=== PATIENT | female | born 1955 | race Asian ===

== ENCOUNTER → 2017-02-03 | Outpatient (CLI) | payer MEDICARE, OTHER ==
[~2017-02-03] MED LIST: AMLO5TAB4 PO; ASPI-556 PO; ATOR40TA28 PO; EXEN5PEN2 SQ; FERR-89 PO; HYDR-4173 PO; LABE200T PO; SERT50TA12 PO; SIMV-260 PO
== END | disposition home or self-care (01) ==
LOC: RADPV 10:41
PROVIDERS: ATTEND Internal Medicine Nephrology
DX: N18.4 Chronic kidney disease, stage 4 (severe) (principal); N27.0 Small kidney, unilateral
CPT/HCPCS: 76770

== ENCOUNTER → 2018-02-05 | Outpatient (CLI) | payer MEDICARE, OTHER | END | disposition home or self-care (01) | LOC: RADPV 09:59 | PROVIDERS: ATTEND Internal Medicine Nephrology | DX: N26.1 Atrophy of kidney (terminal) (principal); N18.4 Chronic kidney disease, stage 4 (severe) | CPT/HCPCS: 76770 ==

== ENCOUNTER 2019-12-12 23:23 | Inpatient (IN) | payer MEDICARE, OTHER ==
[~2019-12-12] VITALS: Ht 162.6 cm; Wt 65.2 kg
[~2019-12-12 23:23] MED LIST changes: -LABE200T PO; +LABE200T5 PO
[2019-12-13] MEDS ORDERED: VANCOMYCIN HCL 1 GM/D5% WATER 200 ML IV ONE
[2019-12-13] MEDS ORDERED: PIPERACILLIN/TAZO 3.375 GM/D5W 50 ML IV ONE
[2019-12-13] MEDS ORDERED: PIPERACILLIN SODIUM/TAZOBACTAM 4.5 GM in DEXTROSE 5%-WATER 100 ML IV ONE ×2
[2019-12-13 00:08] LABS: BASOPHILS % (AUTO) 0.2 % (0.0-2.0); EOSINOPHILS % (AUTO) 0 % (1.0-6.0); HEMATOCRIT 28.4 % (36-46); HEMOGLOBIN 9.1 g/dL (12.0-16.0); LYMPHOCYTES # (AUTO) 0.3 K/uL (1.0-4.8); LYMPHOCYTES % (AUTO) 2.7 % (22.0-44.0); MEAN CORPUSCULAR HGB CONC 32.2 G/dL (31.0-37.0); MEAN CORPUSCULAR VOLUME 87 fL (80-100); MONOCYTES # (AUTO) 0.6 K/uL (0.1-1.0); MONOCYTES % (AUTO) 5.8 % (2.0-9.0); NEUTROPHILS # (AUTO) 9.5 K/uL (1.8-7.7); PLATELET COUNT (AUTO) 175 K/uL (150-450); RED BLOOD CELL COUNT(AUTO) 3.27 MIL/uL (4.00-5.20); RED CELL DISTRIBUTION WIDTH 18.7 % (11.5-14.5)
[2019-12-13 00:10] LABS: NEUTROPHILS % (AUTO) 91.3 % (40.0-70.0)
[2019-12-13 00:14] LABS: CREATININE 5.54 mg/dL (0.60-1.30); POTASSIUM 4.3 mmol/L (3.5-5.1)
[2019-12-13] MEDS ORDERED: SODIUM CHLORIDE 0.9% 1,000 ML IV ONE ×2 (00:15→01:45)
[2019-12-13 00:17] LABS: INR 1.2 (0.9-1.1)
[2019-12-13 00:20] LABS: ALBUMIN 2.1 g/dL (3.4-5.0); BILIRUBIN,TOTAL 0.8 mg/dL (0.1-1.0); TOTAL PROTEIN, SERUM 6.9 g/dL (6.4-8.2)
[2019-12-13 00:21] LABS: LACTIC ACID 1.7 mmol/L (0.4-2.0)
[2019-12-13 00:36] LABS: INFLUENZA TYPE A NEGATIVE FOR TYPE A (NEGATIVE); INFLUENZA TYPE B NEGATIVE FOR TYPE B (NEGATIVE)
[2019-12-13] MEDS ORDERED: INSU200I4 SQ (00:36)
[2019-12-13] MEDS ORDERED: SEVE800T17 PO (00:36)
[2019-12-13] MEDS ORDERED: BRIM15OS OU (00:36)
[2019-12-13] MEDS ORDERED: ALLO100T PO (00:36)
[2019-12-13] MEDS ORDERED: NUT.237L66 PO (00:36)
[2019-12-13] MEDS ORDERED: APIX2.5T PO (00:36)
[2019-12-13] MEDS ORDERED: OXYM30SP27 NASAL (00:36)
[2019-12-13] MEDS ORDERED: PREG50 PO (00:36)
[2019-12-13] MEDS ORDERED: MECL-160 PO (00:36)
[2019-12-13] MEDS ORDERED: OLME20TA10 PO (00:36)
[2019-12-13 00:54] LABS: GLUCOSE,POINT OF CARE 247 MG/DL (70-110)
[2019-12-13 01:09] LABS: APPEARANCE,URINE CLOUDY (CLEAR); BILIRUBIN,URINE NEGATIVE (NEGATIVE); GLUCOSE, URINE (UA) 250 mg/dL (NEGATIVE); KETONES,URINE NEGATIVE (NEGATIVE); LEUKOCYTE ESTERASE ,URINE MODERATE (NEGATIVE); NITRATE,URINE NEGATIVE (NEGATIVE); OCCULT BLOOD,URINE SMALL (NEGATIVE); PH,URINE 6.5 (5.0-8.0); PROTEIN,URINE SEE CONFIRM (NEGATIVE); UROBILINOGEN,URINE 0.2 mg/dL (<=1.0)
[2019-12-13 01:17] LABS: BACTERIA,URINE Few /HPF (None Seen); SULFOSALICYLIC ACID,URINE 4+ (Negative); WBC,URINE >100 /HPF (0-5); YEAST,URINE Rare /HPF (None Seen)
[2019-12-13 01:18] LABS: SQUAMOUS EPITHELIAL CELL,UR Rare /LPF (None Seen)
[2019-12-13] MEDS ORDERED: NOREPINEPHRINE 4 MG/D5%-WATER 250 ML IV ONE (02:50)
[2019-12-13] MEDS ORDERED: ACETAMINOPHEN 325 MG TABLET PO PRN (03:00)
[2019-12-13] MEDS ORDERED: ONDANSETRON HCL 4 MG/2 ML VIAL IVP PRN (03:00)
[2019-12-13] MEDS ORDERED: 0.9% SODIUM CHLORIDE 10 ML SYRINGE IVP PRN ×2 (03:00)
[2019-12-13] MEDS ORDERED: CIPROFLOXACIN 400 MG/D5% WATER 200 ML IV ONE (03:15)
[2019-12-13] MEDS ORDERED: NOREPINEPHRINE 4 MG/D5%-WATER 250 ML IV PRN (03:15)
[2019-12-13] MEDS ORDERED: ACETAMINOPHEN 1000 MG/ISO-OSM 100 ML IV ONE ×2 (06:30)
[2019-12-13 09:04] LABS: GLUCOSE,POINT OF CARE 271 MG/DL (70-110)
[2019-12-13] MEDS ORDERED: DIGOXIN 250 MCG/ML 2 ML AMP IVP ONE ×2 (10:15)
[2019-12-13] MEDS ORDERED: AMIODARONE HCL 150 MG in DEXTROSE 5%-WATER 97 ML IV ONE (10:30)
[2019-12-13] MEDS ORDERED: AMIODARONE HCL 360 MG in DEXTROSE 5%-WATER 242.8 ML IV ONE (10:45)
[2019-12-13 13:50] LABS: GLUCOSE,POINT OF CARE 379 MG/DL (70-110)
[2019-12-13 16:00] VITALS: BP 138/57
[2019-12-13] MEDS ORDERED: AMIODARONE HCL 540 MG in DEXTROSE 5%-WATER 239.2 ML IV ONE (16:45)
[2019-12-13] MEDS ORDERED: DEXTROSE 50%-WATER 25 GM/50 ML SYRINGE IVP PRN (18:30)
[2019-12-13] MEDS ORDERED: INSULIN LISPRO 100 UNITS/ML SQ PRN (18:30)
[2019-12-13 20:00] VITALS: BP 114/49
[2019-12-13 21:59] LABS: GLUCOSE,POINT OF CARE 239 MG/DL (70-110)
[2019-12-14] VITALS (7 sets, daily range): BP systolic 96–156; BP diastolic 41–80
[2019-12-14] MEDS ORDERED: DEXTROSE 50%-WATER 25 GM/50 ML SYRINGE IVP PRN (01:00)
[2019-12-14 06:30] LABS: GLUCOSE,POINT OF CARE 143 MG/DL (70-110)
[2019-12-14 06:40] LABS: BASOPHILS % (AUTO) 0.2 % (0.0-2.0); EOSINOPHILS % (AUTO) 2.5 % (1.0-6.0); HEMATOCRIT 22.7 % (36-46); HEMOGLOBIN 7.5 g/dL (12.0-16.0); LYMPHOCYTES # (AUTO) 0.6 K/uL (1.0-4.8); MEAN CORPUSCULAR HEMOGLOBIN 28.6 pg (26.0-34.0); MEAN CORPUSCULAR HGB CONC 33.2 G/dL (31.0-37.0); MEAN CORPUSCULAR VOLUME 86 fL (80-100); MONOCYTES # (AUTO) 0.6 K/uL (0.1-1.0); MONOCYTES % (AUTO) 6.3 % (2.0-9.0); PLATELET COUNT (AUTO) 139 K/uL (150-450); RED BLOOD CELL COUNT(AUTO) 2.63 MIL/uL (4.00-5.20); RED CELL DISTRIBUTION WIDTH 18.7 % (11.5-14.5)
[2019-12-14 07:10] LABS: % IRON SATURATION 21.1 % (22-44)
[2019-12-14 07:23] LABS: ALBUMIN 1.8 g/dL (3.4-5.0); BILIRUBIN,TOTAL 0.5 mg/dL (0.1-1.0); CALCIUM, TOTAL 8.8 mg/dL (8.8-10.5); CREATININE 6.13 mg/dL (0.60-1.30); MAGNESIUM 1.9 mg/dL (1.80-2.40); POTASSIUM 4.1 mmol/L (3.5-5.1); TOTAL PROTEIN, SERUM 6.2 g/dL (6.4-8.2)
[2019-12-14] MEDS: EPOETIN ALFA 10,000 UNITS/ML VIAL SQ SCH (08:21)
[2019-12-14] MEDS: SEVELAMER CARBONATE 800 MG TABLET PO SCH ×3 (08:21→17:31)
[2019-12-14] MEDS: PREGABALIN 50 MG CAPSULE PO SCH (08:21)
[2019-12-14] MEDS: ATORVASTATIN CALCIUM 40 MG TABLET PO SCH (08:21)
[2019-12-14] MEDS: ALLOPURINOL 100 MG TABLET PO SCH (08:22)
[2019-12-14] MEDS: OXYMETAZOLINE HCL 0.05% 15 ML NASAL SPRAY NASAL SCH ×2 (08:22→21:33)
[2019-12-14] MEDS: BRIMONIDINE TARTRATE 0.1% 5 ML OPHTHALMIC SOLUTION OU SCH ×3 (08:22→21:32)
[2019-12-14] MEDS ORDERED: OLMESARTAN MEDOXOMIL 20 MG TABLET PO SCH (09:00)
[2019-12-14] MEDS ORDERED: AMIODARONE HCL 750 MG in DEXTROSE 5%-WATER 485 ML IV SCH (10:45)
[2019-12-14] MEDS ORDERED: HEPARIN SODIUM,PORCINE 1,000 UNITS/ML VIAL IVP ONE (12:00)
[2019-12-14 14:51] LABS: GLUCOSE,POINT OF CARE 135 MG/DL (70-110)
[2019-12-14] MEDS ORDERED: VANCOMYCIN HCL 1 GM/D5% WATER 200 ML IV PRN (15:30)
[2019-12-14] MEDS ORDERED: CefTAZidime PENTAHYDRATE 1 GM in DEXTROSE 5%-WATER 50 ML IV SCH (16:00)
[2019-12-14] MEDS ORDERED: VANCOMYCIN HCL 1 GM/D5% WATER 200 ML IV ONE (17:00)
[2019-12-14] MEDS: SOD FERRIC GLUC COMPLX/SUCROSE 125 MG in SODIUM CHLORIDE 0.9% 100 ML IV SCH (18:27)
[2019-12-14] MEDS: AMIODARONE HCL 200 MG TABLET PO SCH (22:02)
[2019-12-14] MEDS: ACETAMINOPHEN 325 MG TABLET PO PRN (22:10)
[2019-12-14] MEDS: PIPERACILLIN SODIUM/TAZOBACTAM 2.25 GM in DEXTROSE 5%-WATER 50 ML IV SCH (22:21)
[2019-12-15] VITALS (8 sets, daily range): BP systolic 109–154; BP diastolic 52–84
[2019-12-15] MEDS ORDERED: SODIUM CHLORIDE 0.9% 250 ML IV ONE ×2 (02:29→23:37)
[2019-12-15] MEDS: ACETAMINOPHEN 325 MG TABLET PO PRN ×2 (05:02→11:28)
[2019-12-15 05:07] LABS: BASOPHILS % (AUTO) 0.4 % (0.0-2.0); EOSINOPHILS % (AUTO) 3.1 % (1.0-6.0); HEMATOCRIT 22.1 % (36-46); HEMOGLOBIN 7.3 g/dL (12.0-16.0); LYMPHOCYTES # (AUTO) 0.6 K/uL (1.0-4.8); LYMPHOCYTES % (AUTO) 10.7 % (22.0-44.0); MEAN CORPUSCULAR HEMOGLOBIN 28.2 pg (26.0-34.0); MEAN CORPUSCULAR HGB CONC 33.2 G/dL (31.0-37.0); MEAN CORPUSCULAR VOLUME 85 fL (80-100); MONOCYTES # (AUTO) 0.5 K/uL (0.1-1.0); MONOCYTES % (AUTO) 8.1 % (2.0-9.0); NEUTROPHILS # (AUTO) 4.3 K/uL (1.8-7.7); NEUTROPHILS % (AUTO) 77.7 % (40.0-70.0); PLATELET COUNT (AUTO) 133 K/uL (150-450); RED CELL DISTRIBUTION WIDTH 18.8 % (11.5-14.5)
[2019-12-15 05:25] LABS: ALBUMIN 1.9 g/dL (3.4-5.0); BILIRUBIN,TOTAL 0.7 mg/dL (0.1-1.0); CALCIUM, TOTAL 8.3 mg/dL (8.8-10.5); CREATININE 2.86 mg/dL (0.60-1.30); MAGNESIUM 1.5 mg/dL (1.80-2.40); PHOSPHORUS 2.3 mg/dL (2.5-4.9); POTASSIUM 3.6 mmol/L (3.5-5.1); TOTAL PROTEIN, SERUM 6.2 g/dL (6.4-8.2)
[2019-12-15] MEDS: PIPERACILLIN SODIUM/TAZOBACTAM 2.25 GM in DEXTROSE 5%-WATER 50 ML IV SCH ×3 (07:04→22:33)
[2019-12-15 07:25] LABS: GLUCOSE,POINT OF CARE 95 MG/DL (70-110)
[2019-12-15 07:25] LABS: GLUCOSE,POINT OF CARE 125 MG/DL (70-110)
[2019-12-15 07:36] LABS: GLUCOSE,POINT OF CARE 110 MG/DL (70-110)
[2019-12-15] MEDS: VITAMIN B COMP/VIT C/FOLIC ACID CAPSULE PO SCH (08:03)
[2019-12-15] MEDS: ATORVASTATIN CALCIUM 40 MG TABLET PO SCH (08:03)
[2019-12-15] MEDS: PREGABALIN 50 MG CAPSULE PO SCH (08:03)
[2019-12-15] MEDS: SEVELAMER CARBONATE 800 MG TABLET PO SCH ×2 (08:03→11:27)
[2019-12-15] MEDS: AMIODARONE HCL 200 MG TABLET PO SCH ×2 (08:03→22:31)
[2019-12-15] MEDS: ALLOPURINOL 100 MG TABLET PO SCH (08:03)
[2019-12-15] MEDS: OXYMETAZOLINE HCL 0.05% 15 ML NASAL SPRAY NASAL SCH ×2 (08:05→22:31)
[2019-12-15] MEDS: BRIMONIDINE TARTRATE 0.1% 5 ML OPHTHALMIC SOLUTION OU SCH ×3 (08:06→22:31)
[2019-12-15] MEDS ORDERED: MAGNESIUM OXIDE 400 MG TABLET PO ONE (08:45)
[2019-12-15] MEDS: INSULIN LISPRO 100 UNITS/ML SQ PRN ×2 (11:29→22:43)
[2019-12-15 11:36] LABS: GLUCOSE,POINT OF CARE 132 MG/DL (70-110)
[2019-12-15] MEDS: SOD FERRIC GLUC COMPLX/SUCROSE 125 MG in SODIUM CHLORIDE 0.9% 100 ML IV SCH (18:00)
[2019-12-15 19:08] LABS: GLUCOMETER DEV NAME(LOC) 5S.2A; GLUCOSE,POINT OF CARE 127 MG/DL (70-110)
[2019-12-16] VITALS (15 sets, daily range): BP systolic 95–165; BP diastolic 29–72
[2019-12-16] MEDS ORDERED: LATA2.5D2 OU (01:44)
[2019-12-16 03:11] LABS: GLUCOMETER DEV NAME(LOC) 5N.1; GLUCOSE,POINT OF CARE 143 MG/DL (70-110)
[2019-12-16] MEDS ORDERED: SODIUM CHLORIDE 0.9% 1,000 ML ONE ×2 (04:13)
[2019-12-16 07:24] LABS: BASOPHILS % (AUTO) 0.4 % (0.0-2.0); EOSINOPHILS % (AUTO) 1.1 % (1.0-6.0); HEMATOCRIT 22.2 % (36-46); HEMOGLOBIN 7.2 g/dL (12.0-16.0); LYMPHOCYTES # (AUTO) 0.8 K/uL (1.0-4.8); LYMPHOCYTES % (AUTO) 12.3 % (22.0-44.0); MEAN CORPUSCULAR HEMOGLOBIN 27.5 pg (26.0-34.0); MEAN CORPUSCULAR HGB CONC 32.3 G/dL (31.0-37.0); MEAN CORPUSCULAR VOLUME 85 fL (80-100); MONOCYTES # (AUTO) 0.6 K/uL (0.1-1.0); MONOCYTES % (AUTO) 9.7 % (2.0-9.0); NEUTROPHILS # (AUTO) 4.8 K/uL (1.8-7.7); NEUTROPHILS % (AUTO) 76.5 % (40.0-70.0); PLATELET COUNT (AUTO) 152 K/uL (150-450); RED CELL DISTRIBUTION WIDTH 18.7 % (11.5-14.5)
[2019-12-16 07:51] LABS: BILIRUBIN,TOTAL 0.7 mg/dL (0.1-1.0); CALCIUM, TOTAL 8.3 mg/dL (8.8-10.5); CREATININE 2.29 mg/dL (0.60-1.30); MAGNESIUM 1.6 mg/dL (1.80-2.40); PHOSPHORUS 1.6 mg/dL (2.5-4.9); POTASSIUM 3.5 mmol/L (3.5-5.1); TOTAL PROTEIN, SERUM 6.6 g/dL (6.4-8.2)
[2019-12-16] MEDS: PIPERACILLIN SODIUM/TAZOBACTAM 2.25 GM in DEXTROSE 5%-WATER 50 ML IV SCH ×3 (07:58→22:18)
[2019-12-16 08:19] LABS: INR 1.1 (0.9-1.1); PROTHROMBIN TIME 10.7 SEC (9.4-11.6)
[2019-12-16 09:45] LABS: VANCOMYCIN,RANDOM 11.1 mcg/mL (25.0-50.0)
[2019-12-16] MEDS: OXYMETAZOLINE HCL 0.05% 15 ML NASAL SPRAY NASAL SCH ×2 (09:50→20:45)
[2019-12-16] MEDS: EPOETIN ALFA 10,000 UNITS/ML VIAL SQ SCH (09:50)
[2019-12-16] MEDS: BRIMONIDINE TARTRATE 0.1% 5 ML OPHTHALMIC SOLUTION OU SCH ×3 (09:50→20:46)
[2019-12-16] MEDS ORDERED: MAGNESIUM OXIDE 400 MG TABLET PO ONE (10:45)
[2019-12-16] MEDS ORDERED: HEPARIN SODIUM,PORCINE 1,000 UNITS/ML VIAL IVP ONE (12:00)
[2019-12-16] MEDS ORDERED: VANCOMYCIN HCL 1 GM/D5% WATER 200 ML IV ONE (13:00)
[2019-12-16 13:28] LABS: GLUCOMETER DEV NAME(LOC) 5N.1; GLUCOSE,POINT OF CARE 110 MG/DL (70-110)
[2019-12-16 13:28] LABS: GLUCOMETER DEV NAME(LOC) 5N.1; GLUCOSE,POINT OF CARE 124 MG/DL (70-110)
[2019-12-16] MEDS ORDERED: HEPARIN SODIUM 1000 UNITS/NS 0 ML ONE (13:36)
[2019-12-16] MEDS ORDERED: SODIUM BICARBONATE 50 MEQ/50 ML VIAL ONE (13:36)
[2019-12-16] MEDS ORDERED: LIDOCAINE/PF 1% 30 ML VIAL ONE (13:36)
[2019-12-16] MEDS ORDERED: IOHEXOL 300 MG/ML 100 ML VIAL ONE (13:36)
[2019-12-16] MEDS ORDERED: MIDAZOLAM HCL 2 MG/2 ML VIAL ONE (14:04)
[2019-12-16] MEDS ORDERED: FentaNYL CITRATE-PF 100 MCG/2 ML VIAL ONE (14:04)
[2019-12-16] MEDS ORDERED: SODIUM CHLORIDE 0.9% 500 ML IV ONE (14:08)
[2019-12-16] MEDS ORDERED: LIDOCAINE 1% 30 ML/SOD BICARB 8.4% 4 ML SQ ONE (14:15)
[2019-12-16] MEDS ORDERED: IOHEXOL 300 MG/ML 100 ML VIAL IARTER ONE (14:15)
[2019-12-16] MEDS ORDERED: MIDAZOLAM HCL 2 MG/2 ML VIAL IVP ONE ×3 (14:15→15:30)
[2019-12-16] MEDS ORDERED: FentaNYL CITRATE-PF 100 MCG/2 ML VIAL IVP ONE ×3 (14:15→15:30)
[2019-12-16] MEDS: AMIODARONE HCL 200 MG TABLET PO SCH ×2 (14:19→20:45)
[2019-12-16] MEDS ORDERED: ASPIRIN 325 MG TABLET ONE (14:45)
[2019-12-16] MEDS ORDERED: IOHEXOL 300 MG/ML 50 ML VIAL ONE (15:11)
[2019-12-16] MEDS ORDERED: IOHEXOL 300 MG/ML 50 ML VIAL IARTER ONE (15:30)
[2019-12-16] MEDS: VITAMIN B COMP/VIT C/FOLIC ACID CAPSULE PO SCH (16:28)
[2019-12-16] MEDS: ATORVASTATIN CALCIUM 40 MG TABLET PO SCH (16:28)
[2019-12-16] MEDS: PREGABALIN 50 MG CAPSULE PO SCH (16:28)
[2019-12-16] MEDS: ALLOPURINOL 100 MG TABLET PO SCH (16:29)
[2019-12-16] MEDS: INSULIN LISPRO 100 UNITS/ML SQ PRN ×2 (17:22→22:16)
[2019-12-16] MEDS: SOD FERRIC GLUC COMPLX/SUCROSE 125 MG in SODIUM CHLORIDE 0.9% 100 ML IV SCH (18:18)
[2019-12-16] MEDS ORDERED: CLOPIDOGREL BISULFATE 300 MG TABLET PO ONE (18:45)
[2019-12-16] MEDS: BENZONATATE 100 MG CAPSULE PO PRN (20:45)
[2019-12-17] VITALS (8 sets, daily range): BP systolic 106–144; BP diastolic 23–60
[2019-12-17 02:17] LABS: GLUCOSE,POINT OF CARE 168 MG/DL (70-110)
[2019-12-17] MEDS: ACETAMINOPHEN 325 MG TABLET PO PRN ×3 (03:29→22:01)
[2019-12-17 04:05] LABS: GLUCOSE,POINT OF CARE 100 MG/DL (70-110)
[2019-12-17 05:54] LABS: BASOPHILS % (AUTO) 0.4 % (0.0-2.0); EOSINOPHILS % (AUTO) 2.1 % (1.0-6.0); HEMATOCRIT 21.9 % (36-46); HEMOGLOBIN 7.3 g/dL (12.0-16.0); LYMPHOCYTES # (AUTO) 0.7 K/uL (1.0-4.8); LYMPHOCYTES % (AUTO) 8.3 % (22.0-44.0); MEAN CORPUSCULAR HEMOGLOBIN 28.6 pg (26.0-34.0); MEAN CORPUSCULAR HGB CONC 33.5 G/dL (31.0-37.0); MEAN CORPUSCULAR VOLUME 85 fL (80-100); MONOCYTES # (AUTO) 0.9 K/uL (0.1-1.0); MONOCYTES % (AUTO) 10.6 % (2.0-9.0); NEUTROPHILS # (AUTO) 6.7 K/uL (1.8-7.7); NEUTROPHILS % (AUTO) 78.6 % (40.0-70.0); PLATELET COUNT (AUTO) 161 K/uL (150-450); RED BLOOD CELL COUNT(AUTO) 2.57 MIL/uL (4.00-5.20); RED CELL DISTRIBUTION WIDTH 18.6 % (11.5-14.5)
[2019-12-17] MEDS: PIPERACILLIN SODIUM/TAZOBACTAM 2.25 GM in DEXTROSE 5%-WATER 50 ML IV SCH ×3 (06:15→22:01)
[2019-12-17 06:17] LABS: ALBUMIN 1.9 g/dL (3.4-5.0); BILIRUBIN,TOTAL 0.6 mg/dL (0.1-1.0); CREATININE 3.34 mg/dL (0.60-1.30); MAGNESIUM 1.8 mg/dL (1.80-2.40); PHOSPHORUS 2.8 mg/dL (2.5-4.9); POTASSIUM 3.7 mmol/L (3.5-5.1); TOTAL PROTEIN, SERUM 5.8 g/dL (6.4-8.2)
[2019-12-17] MEDS: ALLOPURINOL 100 MG TABLET PO SCH (08:15)
[2019-12-17] MEDS: ATORVASTATIN CALCIUM 40 MG TABLET PO SCH (08:15)
[2019-12-17] MEDS: CLOPIDOGREL BISULFATE 75 MG TABLET PO SCH (08:15)
[2019-12-17] MEDS: PREGABALIN 50 MG CAPSULE PO SCH (08:15)
[2019-12-17] MEDS: BENZONATATE 100 MG CAPSULE PO PRN ×2 (08:15→22:01)
[2019-12-17] MEDS: AMIODARONE HCL 200 MG TABLET PO SCH ×2 (08:16→20:24)
[2019-12-17 08:17] LABS: GLUCOSE,POINT OF CARE 114 MG/DL (70-110)
[2019-12-17] MEDS: VITAMIN B COMP/VIT C/FOLIC ACID CAPSULE PO SCH (08:17)
[2019-12-17] MEDS: OXYMETAZOLINE HCL 0.05% 15 ML NASAL SPRAY NASAL SCH ×2 (09:00→20:25)
[2019-12-17] MEDS: BRIMONIDINE TARTRATE 0.1% 5 ML OPHTHALMIC SOLUTION OU SCH ×3 (10:01→20:24)
[2019-12-17] MEDS ORDERED: SODIUM CHLORIDE 0.9% 250 ML IV ONE (14:57)
[2019-12-17] MEDS: INSULIN LISPRO 100 UNITS/ML SQ PRN ×2 (17:58→20:28)
[2019-12-17] MEDS: SOD FERRIC GLUC COMPLX/SUCROSE 125 MG in SODIUM CHLORIDE 0.9% 100 ML IV SCH (18:14)
[2019-12-18] VITALS (7 sets, daily range): BP systolic 109–144; BP diastolic 42–87
[2019-12-18 01:30] LABS: GLUCOMETER DEV NAME(LOC) 5N.2; GLUCOSE,POINT OF CARE 162 MG/DL (70-110)
[2019-12-18] MEDS: ACETAMINOPHEN 325 MG TABLET PO PRN ×3 (04:16→20:30)
[2019-12-18 05:56] LABS: BASOPHILS % (AUTO) 0.3 % (0.0-2.0); EOSINOPHILS % (AUTO) 4.6 % (1.0-6.0); HEMATOCRIT 21.3 % (36-46); LYMPHOCYTES # (AUTO) 0.9 K/uL (1.0-4.8); LYMPHOCYTES % (AUTO) 12.1 % (22.0-44.0); MEAN CORPUSCULAR HGB CONC 32.8 G/dL (31.0-37.0); MEAN CORPUSCULAR VOLUME 85 fL (80-100); MONOCYTES # (AUTO) 0.8 K/uL (0.1-1.0); NEUTROPHILS # (AUTO) 5.2 K/uL (1.8-7.7); PLATELET COUNT (AUTO) 174 K/uL (150-450); RED CELL DISTRIBUTION WIDTH 18.6 % (11.5-14.5)
[2019-12-18] MEDS: PIPERACILLIN SODIUM/TAZOBACTAM 2.25 GM in DEXTROSE 5%-WATER 50 ML IV SCH ×3 (06:03→22:18)
[2019-12-18] MEDS: BENZONATATE 100 MG CAPSULE PO PRN ×2 (06:03→12:04)
[2019-12-18 06:26] LABS: ALBUMIN 1.7 g/dL (3.4-5.0); BILIRUBIN,TOTAL 0.5 mg/dL (0.1-1.0); CALCIUM, TOTAL 8.4 mg/dL (8.8-10.5); CREATININE 5.15 mg/dL (0.60-1.30); POTASSIUM 3.7 mmol/L (3.5-5.1); TOTAL PROTEIN, SERUM 6.3 g/dL (6.4-8.2); VANCOMYCIN,RANDOM 24.5 mcg/mL (25.0-50.0)
[2019-12-18] MEDS: INSULIN LISPRO 100 UNITS/ML SQ PRN ×2 (06:48→22:17)
[2019-12-18] MEDS: ATORVASTATIN CALCIUM 40 MG TABLET PO SCH (08:41)
[2019-12-18] MEDS: VITAMIN B COMP/VIT C/FOLIC ACID CAPSULE PO SCH (08:41)
[2019-12-18] MEDS: PREGABALIN 50 MG CAPSULE PO SCH (08:41)
[2019-12-18] MEDS: ALLOPURINOL 100 MG TABLET PO SCH (08:41)
[2019-12-18] MEDS: CLOPIDOGREL BISULFATE 75 MG TABLET PO SCH (08:41)
[2019-12-18] MEDS: AMIODARONE HCL 200 MG TABLET PO SCH ×2 (08:41→20:30)
[2019-12-18] MEDS: BRIMONIDINE TARTRATE 0.1% 5 ML OPHTHALMIC SOLUTION OU SCH ×3 (08:42→20:30)
[2019-12-18] MEDS: OXYMETAZOLINE HCL 0.05% 15 ML NASAL SPRAY NASAL SCH ×2 (08:43→20:30)
[2019-12-18 10:46] LABS: GLUCOMETER DEV NAME(LOC) 5S.1; GLUCOSE,POINT OF CARE 190 MG/DL (70-110)
[2019-12-18 10:46] LABS: GLUCOMETER DEV NAME(LOC) 5N.2; GLUCOSE,POINT OF CARE 140 MG/DL (70-110)
[2019-12-18] MEDS: SOD FERRIC GLUC COMPLX/SUCROSE 125 MG in SODIUM CHLORIDE 0.9% 100 ML IV SCH (17:55)
[2019-12-18 18:15] LABS: GLUCOMETER DEV NAME(LOC) 5S.1; GLUCOSE,POINT OF CARE 135 MG/DL (70-110)
[2019-12-18 20:40] LABS: GLUCOMETER DEV NAME(LOC) 5N.2; GLUCOSE,POINT OF CARE 131 MG/DL (70-110)
[2019-12-19 03:08] LABS: GLUCOMETER DEV NAME(LOC) 5N.2; GLUCOSE,POINT OF CARE 185 MG/DL (70-110)
[2019-12-19 04:32] VITALS: BP 121/50
[2019-12-19] MEDS: ACETAMINOPHEN 325 MG TABLET PO PRN ×2 (05:06→18:35)
[2019-12-19] MEDS: BENZONATATE 100 MG CAPSULE PO PRN (05:08)
[2019-12-19] MEDS: PIPERACILLIN SODIUM/TAZOBACTAM 2.25 GM in DEXTROSE 5%-WATER 50 ML IV SCH ×2 (06:20→15:34)
[2019-12-19 06:32] LABS: BASOPHILS % (AUTO) 0.9 % (0.0-2.0); EOSINOPHILS % (AUTO) 5.7 % (1.0-6.0); HEMATOCRIT 22.4 % (36-46); HEMOGLOBIN 7.2 g/dL (12.0-16.0); LYMPHOCYTES # (AUTO) 1.1 K/uL (1.0-4.8); LYMPHOCYTES % (AUTO) 14.8 % (22.0-44.0); MEAN CORPUSCULAR HGB CONC 32.1 G/dL (31.0-37.0); MEAN CORPUSCULAR VOLUME 87 fL (80-100); MONOCYTES # (AUTO) 0.8 K/uL (0.1-1.0); MONOCYTES % (AUTO) 11.4 % (2.0-9.0); NEUTROPHILS # (AUTO) 4.8 K/uL (1.8-7.7); NEUTROPHILS % (AUTO) 67.2 % (40.0-70.0); PLATELET COUNT (AUTO) 215 K/uL (150-450); RED BLOOD CELL COUNT(AUTO) 2.58 MIL/uL (4.00-5.20); RED CELL DISTRIBUTION WIDTH 19.1 % (11.5-14.5)
[2019-12-19 06:45] LABS: ALBUMIN 1.8 g/dL (3.4-5.0); BILIRUBIN,TOTAL 0.5 mg/dL (0.1-1.0); CALCIUM, TOTAL 8.7 mg/dL (8.8-10.5); CREATININE 6.91 mg/dL (0.60-1.30); MAGNESIUM 2.1 mg/dL (1.80-2.40); PHOSPHORUS 5.2 mg/dL (2.5-4.9); POTASSIUM 3.8 mmol/L (3.5-5.1); TOTAL PROTEIN, SERUM 6.7 g/dL (6.4-8.2)
[2019-12-19] MEDS: INSULIN LISPRO 100 UNITS/ML SQ PRN ×3 (06:52→21:53)
[2019-12-19] MEDS ORDERED: SODIUM CHLORIDE 0.9% 1,000 ML ONE (07:03)
[2019-12-19 07:50] VITALS: BP 131/54
[2019-12-19] MEDS: BRIMONIDINE TARTRATE 0.1% 5 ML OPHTHALMIC SOLUTION OU SCH ×3 (08:05→20:08)
[2019-12-19] MEDS: OXYMETAZOLINE HCL 0.05% 15 ML NASAL SPRAY NASAL SCH ×2 (08:05→20:08)
[2019-12-19] MEDS: EPOETIN ALFA 10,000 UNITS/ML VIAL SQ SCH (08:06)
[2019-12-19] MEDS ORDERED: LIDOCAINE/PF 1% 5 ML VIAL ONE (08:37)
[2019-12-19] MEDS: CLOPIDOGREL BISULFATE 75 MG TABLET PO SCH (09:00)
[2019-12-19] MEDS ORDERED: LIRA0.6P2 SQ (11:06)
[2019-12-19] MEDS ORDERED: CALC0.253 PO (11:06)
[2019-12-19] MEDS ORDERED: OLME5TAB6 PO (11:06)
[2019-12-19 12:30] VITALS: BP 123/58
[2019-12-19] MEDS: VITAMIN B COMP/VIT C/FOLIC ACID CAPSULE PO SCH (12:40)
[2019-12-19] MEDS: ATORVASTATIN CALCIUM 40 MG TABLET PO SCH (12:40)
[2019-12-19] MEDS: PREGABALIN 50 MG CAPSULE PO SCH (12:40)
[2019-12-19] MEDS: AMIODARONE HCL 200 MG TABLET PO SCH ×2 (12:40→20:08)
[2019-12-19] MEDS: ALLOPURINOL 100 MG TABLET PO SCH (12:40)
[2019-12-19 16:45] VITALS: BP 140/52
[2019-12-19] MEDS ORDERED: SODIUM CHLORIDE 0.9% 250 ML IV ONE (17:53)
[2019-12-19] MEDS: SOD FERRIC GLUC COMPLX/SUCROSE 125 MG in SODIUM CHLORIDE 0.9% 100 ML IV SCH (18:27)
[2019-12-19] MEDS ORDERED: VANCOMYCIN HCL 750 MG in DEXTROSE 5%-WATER 250 ML IV ONE (20:00)
[2019-12-19 20:09] VITALS: BP 117/44
[2019-12-19 23:56] VITALS: BP 104/48
[2019-12-20 04:21] LABS: GLUCOMETER DEV NAME(LOC) 5S.1; GLUCOSE,POINT OF CARE 139 MG/DL (70-110)
[2019-12-20 04:22] LABS: GLUCOMETER DEV NAME(LOC) 5S.1; GLUCOSE,POINT OF CARE 199 MG/DL (70-110)
[2019-12-20 04:22] LABS: GLUCOMETER DEV NAME(LOC) 5S.1; GLUCOSE,POINT OF CARE 141 MG/DL (70-110)
[2019-12-20 04:22] LABS: GLUCOMETER DEV NAME(LOC) 5S.1; GLUCOSE,POINT OF CARE 96 MG/DL (70-110)
[2019-12-20 05:29] VITALS: BP 139/53
[2019-12-20 06:58] LABS: BASOPHILS % (AUTO) 0.9 % (0.0-2.0); EOSINOPHILS % (AUTO) 4.4 % (1.0-6.0); LYMPHOCYTES # (AUTO) 1.2 K/uL (1.0-4.8); LYMPHOCYTES % (AUTO) 17.2 % (22.0-44.0); MEAN CORPUSCULAR HEMOGLOBIN 27.7 pg (26.0-34.0); MEAN CORPUSCULAR HGB CONC 31.8 G/dL (31.0-37.0); MEAN CORPUSCULAR VOLUME 87 fL (80-100); MONOCYTES # (AUTO) 0.7 K/uL (0.1-1.0); MONOCYTES % (AUTO) 10.2 % (2.0-9.0); NEUTROPHILS # (AUTO) 4.9 K/uL (1.8-7.7); NEUTROPHILS % (AUTO) 67.3 % (40.0-70.0); PLATELET COUNT (AUTO) 254 K/uL (150-450); RED BLOOD CELL COUNT(AUTO) 2.54 MIL/uL (4.00-5.20); RED CELL DISTRIBUTION WIDTH 19.1 % (11.5-14.5)
[2019-12-20 07:14] LABS: ALBUMIN 1.9 g/dL (3.4-5.0); BILIRUBIN,TOTAL 0.4 mg/dL (0.1-1.0); CALCIUM, TOTAL 8.8 mg/dL (8.8-10.5); CREATININE 4.69 mg/dL (0.60-1.30); POTASSIUM 3.6 mmol/L (3.5-5.1); TOTAL PROTEIN, SERUM 6.9 g/dL (6.4-8.2)
[2019-12-20 07:23] VITALS: BP 134/52
[2019-12-20] MEDS ORDERED: OLMESARTAN MEDOXOMIL 5 MG TABLET PO SCH (09:00)
[2019-12-20] MEDS: ALLOPURINOL 100 MG TABLET PO SCH (09:03)
[2019-12-20] MEDS: VITAMIN B COMP/VIT C/FOLIC ACID CAPSULE PO SCH (09:03)
[2019-12-20] MEDS: AMIODARONE HCL 200 MG TABLET PO SCH ×2 (09:03→21:44)
[2019-12-20] MEDS: PREGABALIN 50 MG CAPSULE PO SCH (09:03)
[2019-12-20] MEDS: CLOPIDOGREL BISULFATE 75 MG TABLET PO SCH (09:03)
[2019-12-20] MEDS: ATORVASTATIN CALCIUM 40 MG TABLET PO SCH (09:03)
[2019-12-20] MEDS: OXYMETAZOLINE HCL 0.05% 15 ML NASAL SPRAY NASAL SCH ×2 (09:04→21:45)
[2019-12-20] MEDS: BRIMONIDINE TARTRATE 0.1% 5 ML OPHTHALMIC SOLUTION OU SCH ×3 (09:04→21:45)
[2019-12-20] MEDS: ACETAMINOPHEN 325 MG TABLET PO PRN ×2 (09:24→22:14)
[2019-12-20] MEDS: INSULIN LISPRO 100 UNITS/ML SQ PRN ×3 (11:35→21:50)
[2019-12-20 11:47] VITALS: BP 150/63
[2019-12-20] MEDS: SOD FERRIC GLUC COMPLX/SUCROSE 125 MG in SODIUM CHLORIDE 0.9% 100 ML IV SCH (18:22)
[2019-12-20 18:24] VITALS: BP 148/72
[2019-12-20 19:47] LABS: GLUCOMETER DEV NAME(LOC) 5S.1; GLUCOSE,POINT OF CARE 185 MG/DL (70-110)
[2019-12-20 19:47] LABS: GLUCOMETER DEV NAME(LOC) 5S.1; GLUCOSE,POINT OF CARE 104 MG/DL (70-110)
[2019-12-20 19:48] LABS: GLUCOMETER DEV NAME(LOC) 5S.1; GLUCOSE,POINT OF CARE 142 MG/DL (70-110)
[2019-12-20 20:03] VITALS: BP 118/50
[2019-12-21 00:15] VITALS: BP 116/56
[2019-12-21 05:08] VITALS: BP 143/58
[2019-12-21 06:00] LABS: GLUCOMETER DEV NAME(LOC) 5N.2; GLUCOSE,POINT OF CARE 148 MG/DL (70-110)
[2019-12-21 07:39] LABS: BASOPHILS % (AUTO) 0.9 % (0.0-2.0); EOSINOPHILS % (AUTO) 2.6 % (1.0-6.0); HEMATOCRIT 21.9 % (36-46); HEMOGLOBIN 7.4 g/dL (12.0-16.0); LYMPHOCYTES # (AUTO) 1.6 K/uL (1.0-4.8); LYMPHOCYTES % (AUTO) 21.2 % (22.0-44.0); MEAN CORPUSCULAR HEMOGLOBIN 29.5 pg (26.0-34.0); MEAN CORPUSCULAR HGB CONC 33.6 G/dL (31.0-37.0); MEAN CORPUSCULAR VOLUME 88 fL (80-100); MONOCYTES # (AUTO) 0.6 K/uL (0.1-1.0); MONOCYTES % (AUTO) 7.5 % (2.0-9.0); NEUTROPHILS # (AUTO) 5.3 K/uL (1.8-7.7); NEUTROPHILS % (AUTO) 67.8 % (40.0-70.0); PLATELET COUNT (AUTO) 248 K/uL (150-450); RED CELL DISTRIBUTION WIDTH 19.6 % (11.5-14.5)
[2019-12-21 07:49] LABS: ALBUMIN 1.8 g/dL (3.4-5.0); BILIRUBIN,TOTAL 0.4 mg/dL (0.1-1.0); CALCIUM, TOTAL 8.7 mg/dL (8.8-10.5); CREATININE 6.22 mg/dL (0.60-1.30); POTASSIUM 3.7 mmol/L (3.5-5.1); TOTAL PROTEIN, SERUM 6.7 g/dL (6.4-8.2)
[2019-12-21 08:13] VITALS: BP 156/55
[2019-12-21 08:14] LABS: INR 1.1 (0.9-1.1); PROTHROMBIN TIME 11.6 SEC (9.4-11.6)
[2019-12-21] MEDS: BRIMONIDINE TARTRATE 0.1% 5 ML OPHTHALMIC SOLUTION OU SCH ×3 (08:53→21:07)
[2019-12-21] MEDS: EPOETIN ALFA 10,000 UNITS/ML VIAL SQ SCH (08:53)
[2019-12-21] MEDS: OXYMETAZOLINE HCL 0.05% 15 ML NASAL SPRAY NASAL SCH ×2 (08:54→21:07)
[2019-12-21] MEDS: AMIODARONE HCL 200 MG TABLET PO SCH ×2 (09:00→21:05)
[2019-12-21] MEDS: ATORVASTATIN CALCIUM 40 MG TABLET PO SCH (09:00)
[2019-12-21] MEDS: PREGABALIN 50 MG CAPSULE PO SCH (09:00)
[2019-12-21] MEDS: VITAMIN B COMP/VIT C/FOLIC ACID CAPSULE PO SCH (09:00)
[2019-12-21] MEDS: ALLOPURINOL 100 MG TABLET PO SCH (09:00)
[2019-12-21] MEDS: CLOPIDOGREL BISULFATE 75 MG TABLET PO SCH (09:00)
[2019-12-21] MEDS ORDERED: BUPIVACAINE HCL/PF 0.5% 30 ML VIAL ONE (10:22)
[2019-12-21] MEDS ORDERED: LIDOCAINE/PF 1% 30 ML VIAL ONE (10:23)
[2019-12-21] MEDS ORDERED: BACITRACIN 50,000 UNITS/VIAL ONE (10:23)
[2019-12-21] MEDS ORDERED: SODIUM CL IRRIG SOLN BAG 0 ML IRRIG ONE (10:46)
[2019-12-21] MEDS ORDERED: SODIUM CHLORIDE 0.9% 1,000 ML IV ONE (11:00)
[2019-12-21] MEDS ORDERED: SODIUM CHLORIDE 0.9% 10 ML ONE (11:08)
[2019-12-21 11:32] LABS: GLUCOMETER DEV NAME(LOC) 5S.1; GLUCOSE,POINT OF CARE 128 MG/DL (70-110)
[2019-12-21] MEDS ORDERED: VANCOMYCIN HCL 1 GM/D5% WATER 200 ML IV STA (11:33)
[2019-12-21] MEDS ORDERED: MEPERIDINE-PF 25 MG/ML VIAL IVP PRN (12:15)
[2019-12-21] MEDS ORDERED: FentaNYL CITRATE-PF 100 MCG/2 ML VIAL IVP PRN (12:15)
[2019-12-21] MEDS ORDERED: HYDROmorphone 2 MG/ML SYRINGE IVP PRN (12:15)
[2019-12-21 14:39] LABS: GLUCOMETER DEV NAME(LOC) 5S.1; GLUCOSE,POINT OF CARE 153 MG/DL (70-110)
[2019-12-21 16:24] VITALS: BP 126/63
[2019-12-21 17:52] LABS: GLUCOMETER DEV NAME(LOC) 5N.2; GLUCOSE,POINT OF CARE 146 MG/DL (70-110)
[2019-12-21] MEDS: SOD FERRIC GLUC COMPLX/SUCROSE 125 MG in SODIUM CHLORIDE 0.9% 100 ML IV SCH (18:15)
[2019-12-21] MEDS: INSULIN LISPRO 100 UNITS/ML SQ PRN (18:16)
[2019-12-21 19:38] VITALS: BP 136/50
[2019-12-21] MEDS: ACETAMINOPHEN 325 MG TABLET PO PRN (20:25)
[2019-12-21] MEDS: OXYGEN THERAPY IH SCH (20:54)
[2019-12-21 23:49] VITALS: BP 144/85
[2019-12-22] MEDS: ACETAMINOPHEN 325 MG TABLET PO PRN ×5 (02:47→21:09)
[2019-12-22 04:43] VITALS: BP 137/56
[2019-12-22] MEDS ORDERED: KETAMINE HCL 50 MG/ML 10 ML VIAL IVP ONE (05:26)
[2019-12-22] MEDS ORDERED: PROPOFOL 1% 20 ML VIAL IVP ONE (05:26)
[2019-12-22] MEDS ORDERED: MIDAZOLAM HCL 2 MG/2 ML VIAL IVP ONE (05:26)
[2019-12-22] MEDS ORDERED: FentaNYL CITRATE-PF 100 MCG/2 ML VIAL IVP ONE (05:26)
[2019-12-22 07:13] VITALS: BP 136/51
[2019-12-22] MEDS: OXYGEN THERAPY IH SCH ×2 (08:00→20:00)
[2019-12-22 08:28] LABS: BASOPHILS % (AUTO) 0.6 % (0.0-2.0); EOSINOPHILS % (AUTO) 1.5 % (1.0-6.0); HEMATOCRIT 21.5 % (36-46); HEMOGLOBIN 7.1 g/dL (12.0-16.0); LYMPHOCYTES # (AUTO) 1.2 K/uL (1.0-4.8); LYMPHOCYTES % (AUTO) 12.8 % (22.0-44.0); MEAN CORPUSCULAR HEMOGLOBIN 28.7 pg (26.0-34.0); MEAN CORPUSCULAR HGB CONC 32.8 G/dL (31.0-37.0); MEAN CORPUSCULAR VOLUME 87 fL (80-100); MONOCYTES # (AUTO) 0.7 K/uL (0.1-1.0); MONOCYTES % (AUTO) 7.8 % (2.0-9.0); NEUTROPHILS # (AUTO) 6.9 K/uL (1.8-7.7); NEUTROPHILS % (AUTO) 77.3 % (40.0-70.0); PLATELET COUNT (AUTO) 279 K/uL (150-450); RED BLOOD CELL COUNT(AUTO) 2.47 MIL/uL (4.00-5.20); RED CELL DISTRIBUTION WIDTH 19.9 % (11.5-14.5)
[2019-12-22 08:48] LABS: CALCIUM, TOTAL 8.5 mg/dL (8.8-10.5); CREATININE 7.35 mg/dL (0.60-1.30); POTASSIUM 3.7 mmol/L (3.5-5.1)
[2019-12-22] MEDS: ATORVASTATIN CALCIUM 40 MG TABLET PO SCH (09:05)
[2019-12-22] MEDS: PREGABALIN 50 MG CAPSULE PO SCH (09:05)
[2019-12-22] MEDS: AMIODARONE HCL 200 MG TABLET PO SCH ×2 (09:06→21:11)
[2019-12-22] MEDS: CLOPIDOGREL BISULFATE 75 MG TABLET PO SCH (09:06)
[2019-12-22] MEDS: ALLOPURINOL 100 MG TABLET PO SCH (09:06)
[2019-12-22] MEDS: OXYMETAZOLINE HCL 0.05% 15 ML NASAL SPRAY NASAL SCH ×2 (10:51→21:12)
[2019-12-22] MEDS: BRIMONIDINE TARTRATE 0.1% 5 ML OPHTHALMIC SOLUTION OU SCH ×3 (10:52→21:11)
[2019-12-22] MEDS: VITAMIN B COMP/VIT C/FOLIC ACID CAPSULE PO SCH (10:52)
[2019-12-22 11:09] VITALS: BP 142/71
[2019-12-22 11:57] LABS: GLUCOMETER DEV NAME(LOC) 5N.2; GLUCOSE,POINT OF CARE 228 MG/DL (70-110)
[2019-12-22] MEDS: INSULIN LISPRO 100 UNITS/ML SQ PRN ×3 (12:07→21:24)
[2019-12-22 14:33] VITALS: BP 114/52
[2019-12-22] MEDS: IPRATROPIUM BROMIDE 0.5 MG/2.5 ML NEB SOLUTION NEB SCH ×3 (16:01→23:39)
[2019-12-22] MEDS: ALBUTEROL SULFATE 2.5 MG/0.5 ML NEB SOLUTION NEB SCH ×3 (16:01→23:39)
[2019-12-22 17:10] LABS: GLUCOMETER DEV NAME(LOC) 5N.1; GLUCOSE,POINT OF CARE 163 MG/DL (70-110)
[2019-12-22 21:42] VITALS: BP 127/56
[2019-12-23 00:30] VITALS: BP 113/52
[2019-12-23] MEDS: IPRATROPIUM BROMIDE 0.5 MG/2.5 ML NEB SOLUTION NEB SCH ×6 (03:25→22:46)
[2019-12-23] MEDS: ALBUTEROL SULFATE 2.5 MG/0.5 ML NEB SOLUTION NEB SCH ×6 (03:25→22:46)
[2019-12-23 04:39] VITALS: BP 129/58
[2019-12-23] MEDS: CLOPIDOGREL BISULFATE 75 MG TABLET PO SCH (07:37)
[2019-12-23 07:55] VITALS: BP 126/59
[2019-12-23] MEDS: OXYGEN THERAPY IH SCH ×2 (08:00→21:00)
[2019-12-23] MEDS: AMIODARONE HCL 200 MG TABLET PO SCH ×2 (08:22→21:06)
[2019-12-23] MEDS: PREGABALIN 50 MG CAPSULE PO SCH (08:22)
[2019-12-23] MEDS: VITAMIN B COMP/VIT C/FOLIC ACID CAPSULE PO SCH (08:22)
[2019-12-23] MEDS: BRIMONIDINE TARTRATE 0.1% 5 ML OPHTHALMIC SOLUTION OU SCH ×3 (08:23→20:56)
[2019-12-23] MEDS: EPOETIN ALFA 10,000 UNITS/ML VIAL SQ SCH (08:23)
[2019-12-23] MEDS: ATORVASTATIN CALCIUM 40 MG TABLET PO SCH (08:23)
[2019-12-23] MEDS: ALLOPURINOL 100 MG TABLET PO SCH (08:23)
[2019-12-23] MEDS: OXYMETAZOLINE HCL 0.05% 15 ML NASAL SPRAY NASAL SCH ×2 (08:24→20:56)
[2019-12-23] MEDS ORDERED: HEPARIN SODIUM,PORCINE 1,000 UNITS/ML 10 ML VIAL ONE (08:53)
[2019-12-23] MEDS ORDERED: HEPARIN SODIUM 1000 UNITS/NS 500 ML ONE (08:53)
[2019-12-23] MEDS ORDERED: LIDOCAINE 1%/EPI 1:200,000/PF 10 ML VIAL ONE (08:53)
[2019-12-23] MEDS ORDERED: FLUMAZENIL 0.1 MG/ML 5 ML VIAL IVP ONE (09:24)
[2019-12-23] MEDS ORDERED: NALOXONE HCL 0.4 MG/ML VIAL ONE (09:24)
[2019-12-23] MEDS ORDERED: MIDAZOLAM HCL 2 MG/2 ML VIAL ONE (09:24)
[2019-12-23] MEDS ORDERED: FentaNYL CITRATE-PF 100 MCG/2 ML VIAL ONE (09:24)
[2019-12-23] MEDS ORDERED: FentaNYL CITRATE-PF 100 MCG/2 ML VIAL IVP ONE (10:45)
[2019-12-23] MEDS ORDERED: MIDAZOLAM HCL 2 MG/2 ML VIAL IVP ONE (10:46)
[2019-12-23] MEDS ORDERED: SODIUM CHLORIDE 0.9% 250 ML IV ONE (11:15)
[2019-12-23] MEDS: INSULIN LISPRO 100 UNITS/ML SQ PRN ×3 (12:37→20:55)
[2019-12-23 15:55] VITALS: BP 107/67
[2019-12-23 20:01] LABS: GLUCOMETER DEV NAME(LOC) 5N.1; GLUCOSE,POINT OF CARE 192 MG/DL (70-110)
[2019-12-23 20:01] LABS: GLUCOMETER DEV NAME(LOC) 5N.1; GLUCOSE,POINT OF CARE 250 MG/DL (70-110)
[2019-12-23 20:05] LABS: GLUCOMETER DEV NAME(LOC) 5N.2; GLUCOSE,POINT OF CARE 157 MG/DL (70-110)
[2019-12-23 20:05] LABS: GLUCOMETER DEV NAME(LOC) 5N.2; GLUCOSE,POINT OF CARE 165 MG/DL (70-110)
[2019-12-23 20:06] LABS: GLUCOMETER DEV NAME(LOC) 5N.2; GLUCOSE,POINT OF CARE 170 MG/DL (70-110)
[2019-12-23 20:08] VITALS: BP 123/54
[2019-12-23] MEDS: ACETAMINOPHEN 325 MG TABLET PO PRN (21:00)
[2019-12-23] MEDS: APIXABAN 2.5 MG TABLET PO SCH (21:07)
[2019-12-23 23:57] VITALS: BP 100/50
[2019-12-24] MEDS: IPRATROPIUM BROMIDE 0.5 MG/2.5 ML NEB SOLUTION NEB SCH ×6 (02:38→23:04)
[2019-12-24] MEDS: ALBUTEROL SULFATE 2.5 MG/0.5 ML NEB SOLUTION NEB SCH ×6 (02:38→23:04)
[2019-12-24 04:39] VITALS: BP 108/54
[2019-12-24] MEDS: INSULIN LISPRO 100 UNITS/ML SQ PRN ×2 (06:51→20:34)
[2019-12-24 06:52] LABS: GLUCOMETER DEV NAME(LOC) 5N.2; GLUCOSE,POINT OF CARE 165 MG/DL (70-110)
[2019-12-24 07:40] VITALS: BP 119/58
[2019-12-24] MEDS: OXYGEN THERAPY IH SCH ×2 (08:00→20:00)
[2019-12-24] MEDS: PREGABALIN 50 MG CAPSULE PO SCH (08:23)
[2019-12-24] MEDS: ALLOPURINOL 100 MG TABLET PO SCH (08:24)
[2019-12-24] MEDS: VITAMIN B COMP/VIT C/FOLIC ACID CAPSULE PO SCH (08:24)
[2019-12-24] MEDS: BENZONATATE 100 MG CAPSULE PO PRN (08:24)
[2019-12-24] MEDS: APIXABAN 2.5 MG TABLET PO SCH ×2 (08:24→20:28)
[2019-12-24] MEDS: CLOPIDOGREL BISULFATE 75 MG TABLET PO SCH (08:24)
[2019-12-24] MEDS: AMIODARONE HCL 200 MG TABLET PO SCH ×2 (08:24→20:28)
[2019-12-24] MEDS: OXYMETAZOLINE HCL 0.05% 15 ML NASAL SPRAY NASAL SCH ×2 (08:24→20:29)
[2019-12-24] MEDS: ATORVASTATIN CALCIUM 40 MG TABLET PO SCH (08:24)
[2019-12-24] MEDS: BRIMONIDINE TARTRATE 0.1% 5 ML OPHTHALMIC SOLUTION OU SCH ×3 (08:25→20:29)
[2019-12-24 11:15] VITALS: BP 108/54
[2019-12-24 16:14] VITALS: BP 96/45
[2019-12-24] MEDS ORDERED: HEPARIN SODIUM,PORCINE 1,000 UNITS/ML VIAL IVP ONE (16:29)
[2019-12-24 18:17] LABS: GLUCOMETER DEV NAME(LOC) 5N.2; GLUCOSE,POINT OF CARE 158 MG/DL (70-110)
[2019-12-24 19:09] LABS: GLUCOMETER DEV NAME(LOC) 5N.1; GLUCOSE,POINT OF CARE 111 MG/DL (70-110)
[2019-12-24 20:15] VITALS: BP 130/78
[2019-12-24 20:27] LABS: GLUCOMETER DEV NAME(LOC) 5N.1; GLUCOSE,POINT OF CARE 178 MG/DL (70-110)
[2019-12-24] MEDS: ACETAMINOPHEN 325 MG TABLET PO PRN (20:28)
[2019-12-24 23:52] VITALS: BP 103/55
[2019-12-25] VITALS (13 sets, daily range): BP systolic 100–116; BP diastolic 41–57
[2019-12-25] MEDS: ACETAMINOPHEN 325 MG TABLET PO PRN ×3 (01:20→09:08)
[2019-12-25] MEDS: ALBUTEROL SULFATE 2.5 MG/0.5 ML NEB SOLUTION NEB SCH ×6 (02:45→22:58)
[2019-12-25] MEDS: IPRATROPIUM BROMIDE 0.5 MG/2.5 ML NEB SOLUTION NEB SCH ×6 (02:45→22:58)
[2019-12-25] MEDS: INSULIN LISPRO 100 UNITS/ML SQ PRN ×3 (06:00→21:24)
[2019-12-25 06:11] LABS: GLUCOMETER DEV NAME(LOC) 5N.2; GLUCOSE,POINT OF CARE 194 MG/DL (70-110)
[2019-12-25 06:58] LABS: BASOPHILS % (AUTO) 0.7 % (0.0-2.0); EOSINOPHILS % (AUTO) 1.3 % (1.0-6.0); HEMATOCRIT 21.7 % (36-46); LYMPHOCYTES # (AUTO) 0.8 K/uL (1.0-4.8); MEAN CORPUSCULAR HEMOGLOBIN 28.8 pg (26.0-34.0); MEAN CORPUSCULAR HGB CONC 32.1 G/dL (31.0-37.0); MEAN CORPUSCULAR VOLUME 90 fL (80-100); MONOCYTES # (AUTO) 0.7 K/uL (0.1-1.0); MONOCYTES % (AUTO) 9.9 % (2.0-9.0); NEUTROPHILS # (AUTO) 5.3 K/uL (1.8-7.7); NEUTROPHILS % (AUTO) 76.1 % (40.0-70.0); PLATELET COUNT (AUTO) 282 K/uL (150-450); RED BLOOD CELL COUNT(AUTO) 2.42 MIL/uL (4.00-5.20); RED CELL DISTRIBUTION WIDTH 23.2 % (11.5-14.5)
[2019-12-25] MEDS: OXYGEN THERAPY IH SCH ×2 (08:00→21:25)
[2019-12-25] MEDS: AMIODARONE HCL 200 MG TABLET PO SCH ×2 (09:07→21:25)
[2019-12-25] MEDS: VITAMIN B COMP/VIT C/FOLIC ACID CAPSULE PO SCH (09:08)
[2019-12-25] MEDS: PREGABALIN 50 MG CAPSULE PO SCH (09:08)
[2019-12-25] MEDS: ATORVASTATIN CALCIUM 40 MG TABLET PO SCH (09:08)
[2019-12-25] MEDS: APIXABAN 2.5 MG TABLET PO SCH ×2 (09:09→21:24)
[2019-12-25] MEDS: BRIMONIDINE TARTRATE 0.1% 5 ML OPHTHALMIC SOLUTION OU SCH ×3 (09:09→21:25)
[2019-12-25] MEDS: OXYMETAZOLINE HCL 0.05% 15 ML NASAL SPRAY NASAL SCH ×2 (09:09→21:25)
[2019-12-25] MEDS: ALLOPURINOL 100 MG TABLET PO SCH (09:20)
[2019-12-25] MEDS: CLOPIDOGREL BISULFATE 75 MG TABLET PO SCH (09:20)
[2019-12-25] MEDS ORDERED: SODIUM CHLORIDE 0.9% 250 ML IV ONE (09:35)
[2019-12-25 18:28] LABS: GLUCOMETER DEV NAME(LOC) 5N.1; GLUCOSE,POINT OF CARE 154 MG/DL (70-110)
[2019-12-25 18:28] LABS: GLUCOMETER DEV NAME(LOC) 5N.1; GLUCOSE,POINT OF CARE 132 MG/DL (70-110)
[2019-12-26 00:14] VITALS: BP 117/55
[2019-12-26] MEDS: IPRATROPIUM BROMIDE 0.5 MG/2.5 ML NEB SOLUTION NEB SCH ×6 (03:00→23:04)
[2019-12-26] MEDS: ALBUTEROL SULFATE 2.5 MG/0.5 ML NEB SOLUTION NEB SCH ×6 (03:00→23:04)
[2019-12-26] MEDS: ACETAMINOPHEN 325 MG TABLET PO PRN ×5 (04:00→23:36)
[2019-12-26 04:47] LABS: GLUCOMETER DEV NAME(LOC) 5N.1; GLUCOSE,POINT OF CARE 161 MG/DL (70-110)
[2019-12-26 04:48] VITALS: BP 110/53
[2019-12-26] MEDS: INSULIN LISPRO 100 UNITS/ML SQ PRN ×3 (06:19→17:46)
[2019-12-26 07:06] LABS: BASOPHILS % (AUTO) 1.3 % (0.0-2.0); EOSINOPHILS % (AUTO) 1.7 % (1.0-6.0); HEMATOCRIT 24.4 % (36-46); LYMPHOCYTES # (AUTO) 0.9 K/uL (1.0-4.8); LYMPHOCYTES % (AUTO) 13.5 % (22.0-44.0); MEAN CORPUSCULAR HEMOGLOBIN 29.4 pg (26.0-34.0); MEAN CORPUSCULAR HGB CONC 32.8 G/dL (31.0-37.0); MEAN CORPUSCULAR VOLUME 90 fL (80-100); MONOCYTES # (AUTO) 0.6 K/uL (0.1-1.0); MONOCYTES % (AUTO) 8.9 % (2.0-9.0); NEUTROPHILS # (AUTO) 4.8 K/uL (1.8-7.7); NEUTROPHILS % (AUTO) 74.6 % (40.0-70.0); PLATELET COUNT (AUTO) 277 K/uL (150-450); RED BLOOD CELL COUNT(AUTO) 2.72 MIL/uL (4.00-5.20); RED CELL DISTRIBUTION WIDTH 21.8 % (11.5-14.5)
[2019-12-26 07:50] VITALS: BP 110/64
[2019-12-26] MEDS: OXYGEN THERAPY IH SCH ×2 (08:00→19:40)
[2019-12-26 08:01] LABS: GLUCOMETER DEV NAME(LOC) 5N.2; GLUCOSE,POINT OF CARE 196 MG/DL (70-110)
[2019-12-26] MEDS: EPOETIN ALFA 10,000 UNITS/ML VIAL SQ SCH (08:51)
[2019-12-26] MEDS: OXYMETAZOLINE HCL 0.05% 15 ML NASAL SPRAY NASAL SCH ×2 (08:52→21:12)
[2019-12-26] MEDS: BRIMONIDINE TARTRATE 0.1% 5 ML OPHTHALMIC SOLUTION OU SCH ×3 (08:52→21:11)
[2019-12-26] MEDS: VITAMIN B COMP/VIT C/FOLIC ACID CAPSULE PO SCH (08:53)
[2019-12-26] MEDS: ATORVASTATIN CALCIUM 40 MG TABLET PO SCH (08:53)
[2019-12-26] MEDS: AMIODARONE HCL 200 MG TABLET PO SCH ×2 (08:53→21:12)
[2019-12-26] MEDS: ALLOPURINOL 100 MG TABLET PO SCH (08:53)
[2019-12-26] MEDS: APIXABAN 2.5 MG TABLET PO SCH ×2 (08:54→21:12)
[2019-12-26] MEDS: CLOPIDOGREL BISULFATE 75 MG TABLET PO SCH (08:54)
[2019-12-26] MEDS: PREGABALIN 50 MG CAPSULE PO SCH (08:54)
[2019-12-26 11:40] VITALS: BP 103/44
[2019-12-26 15:22] LABS: GLUCOMETER DEV NAME(LOC) 5N.2; GLUCOSE,POINT OF CARE 173 MG/DL (70-110)
[2019-12-26 16:14] VITALS: BP 101/53
[2019-12-26] MEDS ORDERED: HEPARIN SODIUM,PORCINE 1,000 UNITS/ML VIAL IVP ONE (17:31)
[2019-12-26 20:09] VITALS: BP 101/35
[2019-12-26 23:43] LABS: GLUCOMETER DEV NAME(LOC) 5N.1; GLUCOSE,POINT OF CARE 136 MG/DL (70-110)
[2019-12-26 23:43] LABS: GLUCOMETER DEV NAME(LOC) 5N.1; GLUCOSE,POINT OF CARE 140 MG/DL (70-110)
[2019-12-27] VITALS (7 sets, daily range): BP systolic 116–138; BP diastolic 53–78
[2019-12-27] MEDS: IPRATROPIUM BROMIDE 0.5 MG/2.5 ML NEB SOLUTION NEB SCH ×6 (03:10→23:28)
[2019-12-27] MEDS: ALBUTEROL SULFATE 2.5 MG/0.5 ML NEB SOLUTION NEB SCH ×6 (03:11→23:28)
[2019-12-27 07:28] LABS: VANCOMYCIN,RANDOM 18.8 mcg/mL (25.0-50.0)
[2019-12-27] MEDS: OXYGEN THERAPY IH SCH ×2 (08:00→20:00)
[2019-12-27 09:05] LABS: BASOPHILS % (AUTO) 1.1 % (0.0-2.0); EOSINOPHILS % (AUTO) 1.9 % (1.0-6.0); HEMOGLOBIN 7.9 g/dL (12.0-16.0); LYMPHOCYTES # (AUTO) 0.9 K/uL (1.0-4.8); LYMPHOCYTES % (AUTO) 15.7 % (22.0-44.0); MEAN CORPUSCULAR HEMOGLOBIN 28.7 pg (26.0-34.0); MEAN CORPUSCULAR HGB CONC 31.8 G/dL (31.0-37.0); MEAN CORPUSCULAR VOLUME 90 fL (80-100); MONOCYTES # (AUTO) 0.5 K/uL (0.1-1.0); MONOCYTES % (AUTO) 8.2 % (2.0-9.0); NEUTROPHILS # (AUTO) 4.2 K/uL (1.8-7.7); NEUTROPHILS % (AUTO) 73.1 % (40.0-70.0); PLATELET COUNT (AUTO) 251 K/uL (150-450); RED BLOOD CELL COUNT(AUTO) 2.77 MIL/uL (4.00-5.20); RED CELL DISTRIBUTION WIDTH 24.1 % (11.5-14.5)
[2019-12-27] MEDS: OXYMETAZOLINE HCL 0.05% 15 ML NASAL SPRAY NASAL SCH ×2 (09:05→20:35)
[2019-12-27] MEDS: BRIMONIDINE TARTRATE 0.1% 5 ML OPHTHALMIC SOLUTION OU SCH ×3 (09:07→20:36)
[2019-12-27 09:08] LABS: CALCIUM, TOTAL 9.1 mg/dL (8.8-10.5); CREATININE 7.48 mg/dL (0.60-1.30); POTASSIUM 4.2 mmol/L (3.5-5.1)
[2019-12-27] MEDS: APIXABAN 2.5 MG TABLET PO SCH ×2 (09:11→20:35)
[2019-12-27] MEDS: VITAMIN B COMP/VIT C/FOLIC ACID CAPSULE PO SCH (09:12)
[2019-12-27] MEDS: ATORVASTATIN CALCIUM 40 MG TABLET PO SCH (09:12)
[2019-12-27] MEDS: PREGABALIN 50 MG CAPSULE PO SCH (09:12)
[2019-12-27] MEDS: CLOPIDOGREL BISULFATE 75 MG TABLET PO SCH (09:13)
[2019-12-27] MEDS: ALLOPURINOL 100 MG TABLET PO SCH (09:13)
[2019-12-27] MEDS: AMIODARONE HCL 200 MG TABLET PO SCH ×2 (09:13→20:36)
[2019-12-27] MEDS: ACETAMINOPHEN 325 MG TABLET PO PRN ×2 (09:27→19:08)
[2019-12-27 10:07] LABS: GLUCOMETER DEV NAME(LOC) 5N.2; GLUCOSE,POINT OF CARE 141 MG/DL (70-110)
[2019-12-27 12:04] LABS: GLUCOMETER DEV NAME(LOC) 5N.2; GLUCOSE,POINT OF CARE 111 MG/DL (70-110)
[2019-12-27] MEDS ORDERED: VANCOMYCIN HCL 500 MG in DEXTROSE 5%-WATER 100 ML IV ONE (13:00)
[2019-12-27] MEDS ORDERED: SODIUM CHLORIDE 0.9% 250 ML IV ONE (15:27)
[2019-12-27 17:39] LABS: GLUCOMETER DEV NAME(LOC) 5N.2; GLUCOSE,POINT OF CARE 188 MG/DL (70-110)
[2019-12-27] MEDS: INSULIN LISPRO 100 UNITS/ML SQ PRN ×2 (18:34→22:07)
[2019-12-27] MEDS: MUPIROCIN CALCIUM 2% 22 GM OINTMENT NASAL SCH (20:35)
[2019-12-28] MEDS: ACETAMINOPHEN 325 MG TABLET PO PRN ×3 (01:56→21:37)
[2019-12-28] MEDS: ALBUTEROL SULFATE 2.5 MG/0.5 ML NEB SOLUTION NEB SCH ×6 (02:46→23:00)
[2019-12-28] MEDS: IPRATROPIUM BROMIDE 0.5 MG/2.5 ML NEB SOLUTION NEB SCH ×6 (02:46→23:00)
[2019-12-28 04:22] VITALS: BP 117/67
[2019-12-28 07:44] VITALS: BP 146/65
[2019-12-28] MEDS: CHLORHEXIDINE GLUCONATE 4% 118 ML TOPICAL LIQUID TP SCH (09:00)
[2019-12-28 09:54] LABS: GLUCOMETER DEV NAME(LOC) 5N.2; GLUCOSE,POINT OF CARE 141 MG/DL (70-110)
[2019-12-28 09:54] LABS: GLUCOMETER DEV NAME(LOC) 5N.2; GLUCOSE,POINT OF CARE 143 MG/DL (70-110)
[2019-12-28] MEDS: APIXABAN 2.5 MG TABLET PO SCH ×2 (10:09→21:37)
[2019-12-28] MEDS: CLOPIDOGREL BISULFATE 75 MG TABLET PO SCH (10:09)
[2019-12-28] MEDS: ATORVASTATIN CALCIUM 40 MG TABLET PO SCH (10:09)
[2019-12-28] MEDS: ALLOPURINOL 100 MG TABLET PO SCH (10:09)
[2019-12-28] MEDS: PREGABALIN 50 MG CAPSULE PO SCH (10:09)
[2019-12-28] MEDS: AMIODARONE HCL 200 MG TABLET PO SCH ×2 (10:09→21:37)
[2019-12-28] MEDS: VITAMIN B COMP/VIT C/FOLIC ACID CAPSULE PO SCH (10:09)
[2019-12-28] MEDS: EPOETIN ALFA 10,000 UNITS/ML VIAL SQ SCH (10:10)
[2019-12-28] MEDS: BRIMONIDINE TARTRATE 0.1% 5 ML OPHTHALMIC SOLUTION OU SCH ×3 (10:18→21:37)
[2019-12-28] MEDS: OXYMETAZOLINE HCL 0.05% 15 ML NASAL SPRAY NASAL SCH ×2 (10:18→21:37)
[2019-12-28 11:38] VITALS: BP 125/50
[2019-12-28 12:18] LABS: GLUCOMETER DEV NAME(LOC) 5N.1; GLUCOSE,POINT OF CARE 159 MG/DL (70-110)
[2019-12-28] MEDS: MUPIROCIN CALCIUM 2% 22 GM OINTMENT NASAL SCH ×2 (12:18→21:38)
[2019-12-28] MEDS: INSULIN LISPRO 100 UNITS/ML SQ PRN ×3 (12:45→21:39)
[2019-12-28 15:22] VITALS: BP 125/51
[2019-12-28 17:31] LABS: GLUCOMETER DEV NAME(LOC) 5N.1; GLUCOSE,POINT OF CARE 128 MG/DL (70-110)
[2019-12-28 21:00] VITALS: BP 117/53
[2019-12-28 22:38] LABS: GLUCOMETER DEV NAME(LOC) 5N.2; GLUCOSE,POINT OF CARE 145 MG/DL (70-110)
[2019-12-28 23:29] VITALS: BP 98/58
[2019-12-29] MEDS: IPRATROPIUM BROMIDE 0.5 MG/2.5 ML NEB SOLUTION NEB SCH ×6 (03:00→23:00)
[2019-12-29] MEDS: ALBUTEROL SULFATE 2.5 MG/0.5 ML NEB SOLUTION NEB SCH ×6 (03:00→23:00)
[2019-12-29 04:16] VITALS: BP 96/56
[2019-12-29] MEDS: OXYGEN THERAPY IH SCH ×3 (08:00→22:30)
[2019-12-29] MEDS: ACETAMINOPHEN 325 MG TABLET PO PRN ×3 (08:18→22:40)
[2019-12-29] MEDS: PREGABALIN 50 MG CAPSULE PO SCH (10:09)
[2019-12-29] MEDS: ALLOPURINOL 100 MG TABLET PO SCH (10:09)
[2019-12-29] MEDS: VITAMIN B COMP/VIT C/FOLIC ACID CAPSULE PO SCH (10:09)
[2019-12-29] MEDS: AMIODARONE HCL 200 MG TABLET PO SCH ×2 (10:09→22:27)
[2019-12-29] MEDS: BRIMONIDINE TARTRATE 0.1% 5 ML OPHTHALMIC SOLUTION OU SCH ×3 (10:09→22:27)
[2019-12-29] MEDS: OXYMETAZOLINE HCL 0.05% 15 ML NASAL SPRAY NASAL SCH ×2 (10:10→22:25)
[2019-12-29] MEDS: MUPIROCIN CALCIUM 2% 22 GM OINTMENT NASAL SCH ×2 (10:10→22:25)
[2019-12-29] MEDS: CHLORHEXIDINE GLUCONATE 4% 118 ML TOPICAL LIQUID TP SCH (10:11)
[2019-12-29 10:22] VITALS: BP 116/49
[2019-12-29 11:14] VITALS: BP 131/60
[2019-12-29] MEDS ORDERED: HEPARIN SODIUM,PORCINE 1,000 UNITS/ML VIAL IVP ONE (12:00)
[2019-12-29] MEDS: APIXABAN 2.5 MG TABLET PO SCH ×2 (12:45→22:27)
[2019-12-29] MEDS: ATORVASTATIN CALCIUM 40 MG TABLET PO SCH (12:45)
[2019-12-29] MEDS: CLOPIDOGREL BISULFATE 75 MG TABLET PO SCH (12:45)
[2019-12-29] MEDS: INSULIN LISPRO 100 UNITS/ML SQ PRN (12:51)
[2019-12-29 15:20] VITALS: BP 117/62
[2019-12-29 20:57] VITALS: BP 118/69
[2019-12-30 00:51] VITALS: BP 119/67
[2019-12-30] MEDS: IPRATROPIUM BROMIDE 0.5 MG/2.5 ML NEB SOLUTION NEB SCH ×4 (02:54→15:00)
[2019-12-30] MEDS: ALBUTEROL SULFATE 2.5 MG/0.5 ML NEB SOLUTION NEB SCH ×4 (02:54→15:00)
[2019-12-30 04:30] VITALS: BP 118/59
[2019-12-30] MEDS: ACETAMINOPHEN 325 MG TABLET PO PRN ×2 (05:15→16:55)
[2019-12-30 05:25] LABS: GLUCOMETER DEV NAME(LOC) 5N.1; GLUCOSE,POINT OF CARE 115 MG/DL (70-110)
[2019-12-30 05:26] LABS: GLUCOMETER DEV NAME(LOC) 5N.1; GLUCOSE,POINT OF CARE 139 MG/DL (70-110)
[2019-12-30 05:26] LABS: GLUCOMETER DEV NAME(LOC) 5N.1; GLUCOSE,POINT OF CARE 125 MG/DL (70-110)
[2019-12-30 05:26] LABS: GLUCOMETER DEV NAME(LOC) 5N.1; GLUCOSE,POINT OF CARE 158 MG/DL (70-110)
[2019-12-30 05:47] LABS: GLUCOMETER DEV NAME(LOC) 5N.1; GLUCOSE,POINT OF CARE 161 MG/DL (70-110)
[2019-12-30 07:01] LABS: BASOPHILS % (AUTO) 0.5 % (0.0-2.0); EOSINOPHILS % (AUTO) 2.4 % (1.0-6.0); HEMATOCRIT 26.9 % (36-46); HEMOGLOBIN 8.9 g/dL (12.0-16.0); LYMPHOCYTES # (AUTO) 0.8 K/uL (1.0-4.8); LYMPHOCYTES % (AUTO) 12.5 % (22.0-44.0); MEAN CORPUSCULAR HEMOGLOBIN 29.7 pg (26.0-34.0); MEAN CORPUSCULAR HGB CONC 33.1 G/dL (31.0-37.0); MEAN CORPUSCULAR VOLUME 90 fL (80-100); MONOCYTES # (AUTO) 0.6 K/uL (0.1-1.0); MONOCYTES % (AUTO) 9.5 % (2.0-9.0); NEUTROPHILS # (AUTO) 4.9 K/uL (1.8-7.7); NEUTROPHILS % (AUTO) 75.1 % (40.0-70.0); PLATELET COUNT (AUTO) 224 K/uL (150-450); RED CELL DISTRIBUTION WIDTH 22.9 % (11.5-14.5)
[2019-12-30 07:19] LABS: ALBUMIN 2.2 g/dL (3.4-5.0); BILIRUBIN,TOTAL 0.5 mg/dL (0.1-1.0); CALCIUM, TOTAL 8.7 mg/dL (8.8-10.5); CREATININE 3.53 mg/dL (0.60-1.30); POTASSIUM 3.6 mmol/L (3.5-5.1); TOTAL PROTEIN, SERUM 7.4 g/dL (6.4-8.2); VANCOMYCIN,RANDOM 14.9 mcg/mL (25.0-50.0)
[2019-12-30 08:00] VITALS: BP 115/57
[2019-12-30] MEDS: CLOPIDOGREL BISULFATE 75 MG TABLET PO SCH (08:49)
[2019-12-30] MEDS: AMIODARONE HCL 200 MG TABLET PO SCH (08:49)
[2019-12-30] MEDS: EPOETIN ALFA 10,000 UNITS/ML VIAL SQ SCH (08:49)
[2019-12-30] MEDS: BRIMONIDINE TARTRATE 0.1% 5 ML OPHTHALMIC SOLUTION OU SCH ×2 (08:50→17:03)
[2019-12-30] MEDS: ALLOPURINOL 100 MG TABLET PO SCH (08:50)
[2019-12-30] MEDS: APIXABAN 2.5 MG TABLET PO SCH (08:50)
[2019-12-30] MEDS: VITAMIN B COMP/VIT C/FOLIC ACID CAPSULE PO SCH (08:50)
[2019-12-30] MEDS: PREGABALIN 50 MG CAPSULE PO SCH (08:50)
[2019-12-30] MEDS: ATORVASTATIN CALCIUM 40 MG TABLET PO SCH (08:50)
[2019-12-30] MEDS: MUPIROCIN CALCIUM 2% 22 GM OINTMENT NASAL SCH (08:51)
[2019-12-30] MEDS: OXYMETAZOLINE HCL 0.05% 15 ML NASAL SPRAY NASAL SCH (08:51)
[2019-12-30] MEDS ORDERED: VANCOMYCIN HCL 1 GM/D5% WATER 200 ML IV ONE (10:00)
[2019-12-30] MEDS: CHLORHEXIDINE GLUCONATE 4% 118 ML TOPICAL LIQUID TP SCH (11:32)
[2019-12-30 11:54] VITALS: BP 11/51
[2019-12-30 12:00] VITALS: BP 117/52
[2019-12-30] MEDS: INSULIN LISPRO 100 UNITS/ML SQ PRN ×2 (12:07→17:05)
[2019-12-30 16:00] VITALS: BP 116/62
[2019-12-30 17:45] LABS: GLUCOMETER DEV NAME(LOC) 5N.1; GLUCOSE,POINT OF CARE 169 MG/DL (70-110)
[2019-12-30 17:46] LABS: GLUCOMETER DEV NAME(LOC) 5N.1; GLUCOSE,POINT OF CARE 167 MG/DL (70-110)
== END 2019-12-30 18:30 | DRG 270 ==
LOC: EMS 23:23 → ICU 12-13 13:20 → 5S 12-15 14:30 → ICU 12-16 16:27 → 5N 12-17 10:35
PROVIDERS: ADMIT Hospitalist; ATTEND Internal Medicine
PROC: 04CN3ZZ Extirpation of Matter from Left Popliteal Artery, Percutaneous Approach (ICD-10-PCS; principal; 2019-12-16)
PROC: 047N3D1 Dilation of Left Popliteal Artery with Intraluminal Device, using Drug-Coated Balloon, Percutaneous Approach (ICD-10-PCS; 2019-12-16)
PROC: 047Q3ZZ Dilation of Left Anterior Tibial Artery, Percutaneous Approach (ICD-10-PCS; 2019-12-16)
PROC: B4101ZZ Fluoroscopy of Abdominal Aorta using Low Osmolar Contrast (ICD-10-PCS; 2019-12-16)
PROC: B41G1ZZ Fluoroscopy of Left Lower Extremity Arteries using Low Osmolar Contrast (ICD-10-PCS; 2019-12-16)
PROC: B41F1ZZ Fluoroscopy of Right Lower Extremity Arteries using Low Osmolar Contrast (ICD-10-PCS; 2019-12-16)
PROC: 05PY33Z Removal of Infusion Device from Upper Vein, Percutaneous Approach (ICD-10-PCS; 2019-12-19)
PROC: 0JPT3XZ Removal of Tunneled Vascular Access Device from Trunk Subcutaneous Tissue and Fascia, Percutaneous Approach (ICD-10-PCS; 2019-12-19)
PROC: 0Y6Q0Z0 Detachment at Left 1st Toe, Complete, Open Approach (ICD-10-PCS; 2019-12-21)
PROC: 0QBP0ZZ Excision of Left Metatarsal, Open Approach (ICD-10-PCS; 2019-12-21)
PROC: 0JH63XZ Insertion of Tunneled Vascular Access Device into Chest Subcutaneous Tissue and Fascia, Percutaneous Approach (ICD-10-PCS; 2019-12-23)
PROC: 02HV33Z Insertion of Infusion Device into Superior Vena Cava, Percutaneous Approach (ICD-10-PCS; 2019-12-23)
PROC: B5181ZA Fluoroscopy of Superior Vena Cava using Low Osmolar Contrast, Guidance (ICD-10-PCS; 2019-12-23)
PROC: B548ZZA Ultrasonography of Superior Vena Cava, Guidance (ICD-10-PCS; 2019-12-23)
PROC: 5A1D70Z Performance of Urinary Filtration, Intermittent, Less than 6 Hours Per Day (ICD-10-PCS; 2019-12-24)
PROC: 30233N1 Transfusion of Nonautologous Red Blood Cells into Peripheral Vein, Percutaneous Approach (ICD-10-PCS; 2019-12-25)
PROC: 5A1D70Z Performance of Urinary Filtration, Intermittent, Less than 6 Hours Per Day (ICD-10-PCS; 2019-12-27)
PROC: 5A1D70Z Performance of Urinary Filtration, Intermittent, Less than 6 Hours Per Day (ICD-10-PCS; 2019-12-29)
DX: T82.7XXA Infection and inflammatory reaction due to other cardiac and vascular devices, implants and grafts, initial encounter (principal); A41.02 Sepsis due to Methicillin resistant Staphylococcus aureus; N18.6 End stage renal disease; I21.4 Non-ST elevation (NSTEMI) myocardial infarction; R65.21 Severe sepsis with septic shock; N39.0 Urinary tract infection, site not specified; E11.52 Type 2 diabetes mellitus with diabetic peripheral angiopathy with gangrene; I96 Gangrene, not elsewhere classified; L03.90 Cellulitis, unspecified; I13.2 Hypertensive heart and chronic kidney disease with heart failure and with stage 5 chronic kidney disease, or end stage renal disease; I48.20 Chronic atrial fibrillation, unspecified; H40.9 Unspecified glaucoma; E78.00 Pure hypercholesterolemia, unspecified; E11.22 Type 2 diabetes mellitus with diabetic chronic kidney disease; I50.9 Heart failure, unspecified; R42 Dizziness and giddiness; M10.9 Gout, unspecified; F32.9 Major depressive disorder, single episode, unspecified; E11.51 Type 2 diabetes mellitus with diabetic peripheral angiopathy without gangrene; D63.1 Anemia in chronic kidney disease; E83.42 Hypomagnesemia; E83.39 Other disorders of phosphorus metabolism; R79.89 Other specified abnormal findings of blood chemistry; I27.20 Pulmonary hypertension, unspecified; I70.202 Unspecified atherosclerosis of native arteries of extremities, left leg; E78.5 Hyperlipidemia, unspecified; Z99.2 Dependence on renal dialysis; Z86.73 Personal history of transient ischemic attack (TIA), and cerebral infarction without residual deficits; Z98.41 Cataract extraction status, right eye; Z98.42 Cataract extraction status, left eye; Z98.890 Other specified postprocedural states; Z79.01 Long term (current) use of anticoagulants; Z79.899 Other long term (current) drug therapy
CPT/HCPCS: 36200; 36245; 36561; 36590; 37229; 75630; 75716; 75962; 76770; 76937; 83540; 83550; 83605; 83735; 84100; 84145; 86850; 86900; 86901; 86920; 87040; 87070; 87081; 87086; 87205; 87340; 87804; 88305; 88311; 93005; 93306; 93925; 94640; 94761; 97110; 97162; 97166; 97530; 97535; 99291; G0378; J0131; J0282; J0713; J0744; J0885; J1160; J1644; J2001; J2250; J2310; J2543; J2704; J2916; J3010; J3370; J3490; J7030; J7050; J7060; P9016; Q9967

== ENCOUNTER 2020-03-24 12:58 | Emergency (ER) | payer MEDICARE, OTHER ==
[2020-03-24] VITALS (7 sets, daily range): BP systolic 116–150; BP diastolic 54–71
[~2020-03-24] VITALS: Ht 162.6 cm; Wt 65.0 kg
[~2020-03-24 12:58] MED LIST changes: +ALLO100T PO; -AMLO5TAB4 PO; +APIX2.5T PO; -ASPI-556 PO; +BRIM15OS OU; +CALC0.253 PO; -EXEN5PEN2 SQ; -HYDR-4173 PO; +INSU200I4 SQ; -LABE200T5 PO; +LATA2.5D2 OU; +LIRA0.6P2 SQ; +MECL-160 PO; +NUT.237L66 PO; +OLME5TAB6 PO; +OXYM30SP27 NASAL; +PREG50 PO; -SERT50TA12 PO; +SEVE800T17 PO; -SIMV-260 PO
[2020-03-24 14:16] LABS: BASOPHILS % (AUTO) 0.8 % (0.0-2.0); EOSINOPHILS % (AUTO) 1.7 % (1.0-6.0); LYMPHOCYTES # (AUTO) 0.8 K/uL (1.0-4.8); LYMPHOCYTES % (AUTO) 16.4 % (22.0-44.0); MEAN CORPUSCULAR HEMOGLOBIN 31.8 pg (26.0-34.0); MEAN CORPUSCULAR HGB CONC 31.7 G/dL (31.0-37.0); MEAN CORPUSCULAR VOLUME 100 fL (80-100); MONOCYTES # (AUTO) 0.3 K/uL (0.1-1.0); MONOCYTES % (AUTO) 6.6 % (2.0-9.0); NEUTROPHILS # (AUTO) 3.8 K/uL (1.8-7.7); NEUTROPHILS % (AUTO) 74.5 % (40.0-70.0); PLATELET COUNT (AUTO) 216 K/uL (150-450); RED BLOOD CELL COUNT(AUTO) 1.71 MIL/uL (4.00-5.20); RED CELL DISTRIBUTION WIDTH 24.1 % (11.5-14.5)
[2020-03-24 14:25] LABS: HEMOGLOBIN 5.5 g/dL (12.0-16.0)
[2020-03-24 14:26] LABS: HEMATOCRIT 17.2 % (36-46)
[2020-03-24 14:34] LABS: CALCIUM, TOTAL 9.2 mg/dL (8.8-10.5); CREATININE 6.11 mg/dL (0.60-1.30); POTASSIUM 4.3 mmol/L (3.5-5.1)
[2020-03-24 14:40] LABS: BILIRUBIN,TOTAL 0.4 mg/dL (0.1-1.0); TOTAL PROTEIN, SERUM 6.5 g/dL (6.4-8.2)
[2020-03-24 14:43] LABS: INR 1.1 (0.9-1.1); PROTHROMBIN TIME 11.3 SEC (9.4-11.6)
[2020-03-24] MEDS ORDERED: DiphenhydrAMINE HCL 25 MG CAPSULE PO ONE (16:45)
[2020-03-24] MEDS ORDERED: ACETAMINOPHEN 500 MG TABLET PO ONE (16:45)
== END 2020-03-24 22:00 | disposition short-term general hospital (02) ==
LOC: EMS 12:59
DX: D64.9 Anemia, unspecified (principal); I13.2 Hypertensive heart and chronic kidney disease with heart failure and with stage 5 chronic kidney disease, or end stage renal disease; E11.22 Type 2 diabetes mellitus with diabetic chronic kidney disease; N18.6 End stage renal disease; I50.9 Heart failure, unspecified; I48.91 Unspecified atrial fibrillation; E78.00 Pure hypercholesterolemia, unspecified; Z99.2 Dependence on renal dialysis; Z79.4 Long term (current) use of insulin
CPT/HCPCS: 36415; 36430; 71045; 80053; 82271; 83880; 84484; 85025; 85610; 86850; 86900; 86901; 86923; 93005; 99291; P9016; 31500